=== PATIENT | male | born 1975 | race Caucasian/White ===

== ENCOUNTER 2022-04-18 18:15 | Emergency (ER) | payer OTHER ==
[2022-04-18 18:37] VITALS: BP 143/68
[2022-04-18] MEDS ORDERED: HYDR-4902 PO (23:22)
== END 2022-04-18 23:26 | disposition home or self-care (01) ==
LOC: ER 18:15
DX: S22.20XA Unspecified fracture of sternum, initial encounter for closed fracture (principal); I71.9 Aortic aneurysm of unspecified site, without rupture; Z79.899 Other long term (current) drug therapy; V89.2XXA Person injured in unspecified motor-vehicle accident, traffic, initial encounter; Y93.89 Activity, other specified; Y92.89 Other specified places as the place of occurrence of the external cause; Y99.8 Other external cause status
CPT/HCPCS: 71046; 71120; 71250; 93005